=== PATIENT | female | born 1965 | race Caucasian/White ===

== ENCOUNTER 2016-05-26 03:15 | Emergency (ER) | payer SELFPAY ==
[~2016-05-26] VITALS: Ht 162.6 cm; Wt 79.0 kg
[2016-05-26 03:32] VITALS: Ht 162.6 cm; Wt 79.0 kg
[2016-05-26] MEDS ORDERED: IBUP400T22 PO (05:10)
[2016-05-26] MEDS ORDERED: HYDR-906 PO (05:10)
[2016-05-26] MEDS ORDERED: AMO500 PO (05:10)
--- NOTE | 2016-05-26 05:17 | ERD ---
ER Documentation Chief Complaint Date/Time DATE: 05/26/16 TIME: 05:13 Chief Complaint pain/swelling left neck/posterior ear and top of scalp x2 days HPI This is a 51-year-old female presents to the ER with swelling of her lymph nodes by her ears neck and her scalp. Patient admits to fever today. She denies any ear pain. She denies any cough. She does however admit to itchy and slightly sore throat. Patient denies any difficulty in swallowing, shortness of breath or chest pain. There are no sick contacts at home ROS 12 point review of systems was done, all negative except per HPI. Medications Home Meds Active Scripts Hydrocodone/Acetaminophen ([place] 5-325 Tablet) 1 Each Tablet, 1 TAB PO Q6H Y for PAIN, #10 TAB Prov:MARY MCKEON C 05/26/16 Ibuprofen* (Motrin*) 400 Mg Tab, 400 MG PO Q6, #30 TAB Prov:LINDA,MARY C 05/26/16 Amoxicillin* (Amoxicillin*) 500 Mg Cap, 500 MG PO TID for 7 Days, CAP Prov:MALDONADO MCKEONNA C 05/26/16 Allergies Allergies: Coded Allergies: No Known Allergy (Unverified , 05/26/16) PMhx/Soc Medical and Surgical Hx: pt denies Medical Hx, pt denies Surgical Hx Hx Alcohol Use: No Hx Substance Use: No Hx Tobacco Use: No Physical Exam Vitals Vital Signs Date Time Temp Pulse Resp B/P Pulse Ox O2 Delivery O2 Flow Rate FiO2 05/26/16 03:32 96.7 90 18 141/79 99 Physical Exam GENERAL: The patient is well developed and appropriate for usual state of health , in no apparent distress. HEENT: Atraumatic. Conjunctivae are pink. Pupils equal, round, and reactive to light. Extraocular muscles are grossly intact. Bilateral tympanic membranes are clear with no evidence of erythema, effusion or dulling of the light reflex. The oropharynx is clear with no erythema or exudates. Patient has lymphadenopathy of a regular lymph node. Slightly erythematous throat NECK: Cervical lymphadenopathy CHEST: Clear to auscultation bilaterally. There are no rales, wheezes or rhonchi. HEART: Regular rate and rhythm. No murmurs, clicks, rubs or gallops. NEURO: Alert and oriented. SKIN:The skin is warm and dry. Procedures/MDM This is a 51-year-old female presents to the ER with swollen lymph nodes. Patient may have viral versus bacterial process going on. Patient will be given amoxicillin for possible bacterial etiology. This is however likely a virus. Patient needs to follow-up with her primary care doctor within 1-2 days and explained to patient that if lymphadenopathy does not go away she urgently needs to follow-up as this could be something more serious. I shared my medical decision making with the patient she understands and agrees with plan. Departure Diagnosis: Primary Impression: Lymphadenopathy of head and neck Condition: Stable Patient Instructions: When Your Child Has Swollen Lymph Nodes Additional Instructions: Call your primary care doctor TOMORROW for an appointment during the next 1-2 days.See the doctor sooner or return here if your condition worsens before your appointment time. MARY MCKEON May 26, 2016 05:17
[2016-05-26 05:40] VITALS: BP 109/62; PULSE 93; RESP 20; TEMP 97
== END 2016-05-26 05:41 | disposition home or self-care (01) ==
LOC: FTE 03:15
DX: R59.0 Localized enlarged lymph nodes (principal)
CPT/HCPCS: 99284